=== PATIENT | female | born 1960 | race Caucasian/White ===

== ENCOUNTER 2017-07-26 13:11 | Outpatient (CLI) | payer OTHER ==
[2017-07-26 13:55] LABS: BASOPHILS % (AUTO) 0.6 %; EOSINOPHILS # (AUTO) 0.1 10^3/uL (0.0-0.7); EOSINOPHILS % (AUTO) 2.2 %; HGB - HEMOGLOBIN 14.7 g/dL (12.0-16.0); LYMPHOCYTES # (AUTO) 2.2 10^3/uL (1.5-3.5); LYMPHOCYTES % (AUTO) 39.5 %; MEAN CORPUSCULAR HEMOGLOBIN 29.2 pg (27.0-31.0); MEAN CORPUSCULAR VOLUME 85.9 fL (81.0-99.0); MEAN PLATELET VOLUME 7.3 fL (7.9-10.8); MONOCYTES # (AUTO) 0.4 10^3/uL (0.0-1.0); NEUTROPHILS # (AUTO) 2.7 10^3/uL (1.5-6.6); NEUTROPHILS % (AUTO) 49.7 %; PLT - PLATELET COUNT 245 10^3/uL (130-450); RED BLOOD COUNT 5.02 10^6/uL (4.20-5.40); RED CELL DISTRIBUTION WIDTH 14.4 % (12.0-15.0); WHITE BLOOD COUNT 5.5 x10^3/uL (4.8-10.8)
[2017-07-26 14:13] LABS: ALBUMIN 4.2 g/dL (3.2-5.5); ALBUMIN/GLOBULIN RATIO 1.4 (1.0-2.2); ALKALINE PHOSPHATASE 100 IU/L (42-121); ALT ALANINE AMINOTRANSFERASE 23 IU/L (10-60); AST ASPARTATE AMINOTRANSFERASE 24 IU/L (10-42); BILIRUBIN,TOTAL 0.6 mg/dL (0.2-1.0); BUN - BLOOD UREA NITROGEN 10 mg/dL (6-20); CALCIUM 9.1 mg/dL (8.5-10.3); CARBON DIOXIDE - CO2 27 mmol/L (21-32); CHLORIDE 104 mmol/L (101-111); CHOL/HDL RATIO 4.1 (<4.4); CHOLESTEROL 231 mg/dL; CREATININE 0.6 mg/dL (0.4-1.0); GFR - MDRD 103 (>89); GLUCOSE 93 mg/dL (70-100); HDL CHOLESTEROL 56 mg/dL; LDL CHOLESTEROL,CALCULATED 150 mg/dL; LDL/HDL RATIO 2.7 (<4.4); SODIUM 137 mmol/L (135-145); TOTAL PROTEIN 7.3 g/dL (6.7-8.2); VLDL CHOLESTEROL 25 mg/dL
[2017-07-26 14:25] LABS: THYROID STIMULATING HORMONE 1.2 uIU/mL (0.34-5.60)
[2017-07-26 14:30] LABS: FREE T4 (FREE THYROXINE) 0.72 ng/dL (0.58-1.64)
[2017-07-26 14:31] LABS: FERRITIN 33.9 ng/mL (11.0-306.8)
[2017-07-26 14:53] LABS: FOLLICLE STIMULATING HORMONE 124.25 mIU/mL
[2017-07-26 14:54] LABS: LUTEINIZING HORMONE 55.84 mIU/mL
[2017-07-26 15:10] LABS: BILIRUBIN,DIRECT < 0.1 mg/dL (0.1-0.5)
== END 2017-07-26 13:12 | disposition home or self-care (01) ==
LOC: LAB 13:11
PROVIDERS: ATTEND Naturopath
DX: Z00.01 Encounter for general adult medical examination with abnormal findings (principal); N95.1 Menopausal and female climacteric states
CPT/HCPCS: 36415; 80053; 80061; 81599; 82248; 82306; 82728; 83001; 83002; 83525; 83615; 83721; 84439; 84443; 84481; 85025

== ENCOUNTER 2019-10-02 21:19 | Emergency (ER) | payer OTHER ==
[2019-10-03] MEDS ORDERED: KETOROLAC 60 MG/2 ML VIAL IM STA (01:24)
[2019-10-03] MEDS ORDERED: HYDROmorphone 1 MG/ML CARPUJECT IM STA (01:24)
--- NOTE | 2019-10-03 02:01 | ED Physician Documentation ---
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 However, she states the pain seems to be increasing over the last week and feels like a sharp stinging sensation. Patient states that she has not had any fevers or chills. No erythema or increased swelling of her general face. Patient's states he thinks the tumors may be slightly larger than they have been before. Patient denies any other new symptoms. They state they are mainly here because the patient tried taking her Vicodin at home and it did not last very long. Patient states she could not sleep because it hurts so bad, so they have come here. She states she has been taking a single Vicodin every few hours to try to control the pain. Review of Systems Ten Systems: 10 systems reviewed and negative Constitutional: reports: Reviewed and negative Eyes: reports: Reviewed and negative Ears: reports: Reviewed and negative Nose: reports: Reviewed and negative Throat: reports: Reviewed and negative Cardiac: reports: Reviewed and negative Respiratory: reports: Reviewed and negative GI: reports: Reviewed and negative : reports: Reviewed and negative Skin: reports: Reviewed and negative Musculoskeletal: reports: Reviewed and negative Neurologic: reports: Reviewed and negative Psychiatric: reports: Reviewed and negative Endocrine: reports: Reviewed and negative Immunocompromised: reports: Reviewed and negative PD PAST MEDICAL HISTORY - Past Medical History Past Medical History: No Cardiovascular: None Respiratory: None Neuro: None Endocrine/Autoimmune: None GI: None WELFARE INTERVIEWER: None : None HEENT: None Psych: None Musculoskeletal: None Derm: None - Past Surgical History Past Surgical History: Yes General: Other /WELFARE INTERVIEWER: section - Present Medications Home Medications: Ambulatory Orders Medication Instructions Recorded Confirmed Oxycodone HCl/Acetaminophen 1 - 2 each PO Q4HR PRN #30 tablet 10/03/19 [Percocet 5-325 mg Tablet] - Allergies Allergies/Adverse Reactions: Allergies Allergy/AdvReac Type Severity Reaction Status Date / Time kiwi Allergy Edema Verified 10/02/19 21:32 Penicillins Allergy Rash Verified 10/02/19 21:31 - Social History Does the pt smoke?: No Smoking Status: Never smoker Does the pt drink ETOH?: No Does the pt have substance abuse?: No - Immunizations Immunizations are current?: Yes - POLST Patient has POLST: No PD ED PE NORMAL - Vitals Vital signs reviewed: Yes - General General: Alert and oriented X 3, No acute distress, Well developed/nourished - HEENT HEENT: Atraumatic, PERRL, Other (PT has a large, disfiguring tumor complex involving the L side of her face. No associated erythema or fluctuance. No drainage.) - Neck Neck: Supple, no meningeal sign - Cardiac Cardiac: RRR, No murmur - Respiratory Respiratory: Clear bilaterally - Abdomen Abdomen: Normal bowel sounds, Soft, Non tender, Non distended - Derm Derm: Warm and dry - Extremities Extremities: No deformity - Neuro Neuro: Alert and oriented X 3 - Psych Psych: Normal mood, Normal affect Results - Vitals Vitals: Oxygen O2 Source Room air PD MEDICAL DECISION MAKING - ED course Complexity details: considered differential, d/w patient, d/w family ED course: Pt was treated symptomatically in the ED. No signs of infection were evident. We have discussed the usual indications for return. Departure - Departure Disposition: 01 Home, Self Care Clinical Impression: Facial pain, acute Condition: Stable Prescriptions: Oxycodone HCl/Acetaminophen [Percocet 5-325 mg Tablet] 1 - 2 each PO Q4HR PRN #30 tablet PRN Reason: pain Comments: You have been prescribed Percocet which you may take in place of the Vicodin, if you wish. You may take up to 2 tablets every 4 hours, as needed for pain. The same is true with the Vicodinyou may also take up to 2 tablets every 4 hours as needed. However, you may take only Vicodin or Percocet, or 1 tablet of each at the same time. You may not take 2 tablets of each every 4 hours. Please follow-up with your primary care physician for further pain control issues. Discharge Date/Time: 10/03/19 02:13
[2019-10-03] MEDS ORDERED: oxyCODONE/ACET 5/325 Prepack 4 PO STA (02:03)
[2019-10-03 02:13] VITALS: BP 121/77
== END 2019-10-03 02:13 | disposition home or self-care (01) ==
LOC: ED 21:19
DX: R51 Headache (principal)
CPT/HCPCS: 96372; 99283; 99284; J1170

== ENCOUNTER 2022-12-14 13:30 | Outpatient (CLI) | payer MEDICAID, OTHER ==
[2022-12-14 18:04] LABS: BILIRUBIN,URINE NEGATIVE (NEGATIVE); GLUCOSE, URINE (UA) NEGATIVE (NEGATIVE); KETONES,URINE (UA) NEGATIVE (NEGATIVE); LEUKOCYTE ESTERASE, URINE SMALL (NEGATIVE); NITRITE,URINE NEGATIVE (NEGATIVE); OCCULT BLOOD,URINE LARGE (NEGATIVE); PROTEIN,URINE NEGATIVE (NEGATIVE); UROBILINOGEN,URINE 0.2 (NORMAL) E.U./dL (NORMAL)
[2022-12-14 18:27] LABS: CLARITY,URINE HAZY (CLEAR)
[2022-12-14 19:00] LABS: SQUAMOUS EPITHELIAL CELL,UR RARE Squamous (<= Few); WBC,URINE >25 /HPF (0-5)
[2022-12-14 19:01] LABS: BACTERIA,URINE Moderate /HPF (None Seen)
== END 2022-12-14 13:45 | disposition home or self-care (01) ==
LOC: LAB.N 13:30
PROVIDERS: ATTEND Emergency Medicine
DX: R30.0 Dysuria (principal)
CPT/HCPCS: 81001; 87086; 87181